=== PATIENT | male | born 1985 | race Two or more races ===

== ENCOUNTER 2020-06-02 07:55 | Emergency (ER) | payer OTHER ==
[~2020-06-02] VITALS: Ht 175.3 cm; Wt 70.3 kg
--- NOTE | 2020-06-02 08:03 | NUR ---
[facility] FROM PT'S CAR. TO ER BED 13. AAOPX4. NOT IN RESP DISTRESS. BREATHING EVEN, UNLABORED AND SATTING 98% ON RA. BROUGHT IN FOR OVERDOSE. PT WAS NO GIVEN NARCAN AND ALREADY AWAKE UPON EMS ARRIVAL. PT ON MONITOR. AWAITING MD.
--- NOTE | 2020-06-02 08:42 | NUR ---
PT AMBULATORY ON STEADY GAIT. PT WAS PROVIDED WITH MEAL. HOMELESS WAIVER SIGNED. [employer] CAME BY TO CHECK ON PT
[2020-06-02 08:48] VITALS: BP 127/78
--- NOTE | 2020-06-02 08:48 | NUR ---
Patient discharged to home in stable condition. Written and verbal after care instructions given. Patient verbalizes understanding of instruction. Pt ambulatory with a steady gait
== END 2020-06-02 08:50 | disposition home or self-care (01) ==
LOC: ER 07:57
DX: T40.2X1A Poisoning by other opioids, accidental (unintentional), initial encounter (principal); Z59.0 Homelessness; Y92.89 Other specified places as the place of occurrence of the external cause

== ENCOUNTER 2020-07-08 14:03 | Emergency (ER) | payer OTHER ==
[~2020-07-08] VITALS: Ht 175.3 cm; Wt 77.1 kg
--- NOTE | 2020-07-08 14:03 | NUR ---
PT BIBRA 60 FROM FRIENDS HOUSE C/O FENTANYL AND HEROIN OD. PT IS AAOX4, NOT IN RESPIRATORY DISTRESS, HOOKED TO [employer]. KEPT RESTED AND COMFORTABLE. WILL CONTINUE TO MONITOR.
--- NOTE | 2020-07-08 14:12 | NUR ---
URINE SPECIMEN COLLECTED AND SENT TO LAB.
--- NOTE | 2020-07-08 14:20 | NUR ---
[employer] AT BEDSIDE.
--- NOTE | 2020-07-08 14:35 | NUR ---
SEEN AND EXAMINED BY .
--- NOTE | 2020-07-08 14:54 | NUR ---
Patient does not wish to proceed with medical care recommended by Dr. Garcia. Patient given information related to possible complications, up to and including , which could occur as a result of leaving the hospital at this time. Patient verbalizes understanding of risks involved due to leaving against medical advice. Patient has signed AMA form.
[2020-07-08 14:55] VITALS: BP 127/73
== END 2020-07-08 14:56 | disposition home or self-care (01) ==
LOC: ER 14:08
DX: T40.411A Poisoning by fentanyl or fentanyl analogs, accidental (unintentional), initial encounter (principal); T40.1X1A Poisoning by heroin, accidental (unintentional), initial encounter; Z59.0 Homelessness; Y92.89 Other specified places as the place of occurrence of the external cause